=== PATIENT | female | born 1980 | race Caucasian/White ===

== ENCOUNTER → 2016-09-06 | Outpatient (CLI) | payer MEDICAID | LOC: BMCIMAGING 10:02 | PROVIDERS: ATTEND Family Medicine | DX: R07.9 Chest pain, unspecified (principal) ==

== ENCOUNTER → 2017-10-28 | Outpatient (CLI) | payer MEDICAID | LOC: FIMAGING 10:36 | PROVIDERS: ATTEND Obstetrics & Gynecology | DX: N93.9 Abnormal uterine and vaginal bleeding, unspecified (principal); R93.8 Abnormal findings on diagnostic imaging of other specified body structures ==

== ENCOUNTER → 2018-07-19 | Outpatient (CLI) | payer MEDICAID | LOC: FIMAGING 13:45 | PROVIDERS: ATTEND Midwife | DX: Z34.91 Encounter for supervision of normal pregnancy, unspecified, first trimester (principal); Z3A.20 20 weeks gestation of pregnancy ==